=== PATIENT | female | born 1975 | race Two or more races ===

== ENCOUNTER 2019-05-11 10:30 | Inpatient (IN) | payer OTHER ==
[~2019-05-11] VITALS: Ht 160 cm; Wt 77.1 kg
[~2019-05-11 10:30] MED LIST: PERCOCET 5/3251 TAB PO
[2019-05-11] MEDS ORDERED: ATACAND32 MG PO (11:44)
[2019-05-11] MEDS ORDERED: SYNTHROID175 MCG (11:44)
[2019-05-11] MEDS ORDERED: LABETALOL HCL100 MG (11:45)
[2019-05-19] MEDS ORDERED: CODE1TAB37 PO (08:04)
[2019-05-19] MEDS ORDERED: KETO10TA2 PO (08:05)
== END 2019-05-19 09:33 | disposition home or self-care (01) | DRG 743 ==
LOC: O/R 10:30 → SURG-SUITE 05-17 06:00 → O/R 05-17 06:00 → OB/GYN 05-17 07:00 → SURG-SUITE 05-17 12:06
PROVIDERS: ADMIT Obstetrics & Gynecology Maternal & Fetal Medicine
PROC: 0UT90ZL Resection of Uterus, Supracervical, Open Approach (ICD-10-PCS; principal; 2019-05-17 07:00)
DX: D25.1 Intramural leiomyoma of uterus (principal); D25.0 Submucous leiomyoma of uterus

== ENCOUNTER 2021-02-19 08:35 | Day surgery (SDC) | payer OTHER ==
[~2021-02-19 08:35] MED LIST changes: +ATACAND32 MG PO; +CODE1TAB37 PO; +KETO10TA2 PO; +LABETALOL HCL100 MG; +SYNTHROID175 MCG
== END 2021-02-19 11:55 | disposition home or self-care (01) ==
LOC: AMB-ENDOS 08:35
PROVIDERS: ATTEND Colon & Rectal Surgery
DX: D12.2 Benign neoplasm of ascending colon (principal); Z20.822 Contact with and (suspected) exposure to COVID-19; Z12.11 Encounter for screening for malignant neoplasm of colon